=== PATIENT | male | born 1995 ===

== ENCOUNTER 2020-03-27 05:55 | Emergency (ER) | payer OTHER, SELFPAY ==
[2020-03-27] MEDS ORDERED: Ketorolac Tromethamine 30 MG/ML VIAL ONE (06:25)
== END 2020-03-27 06:55 | disposition home or self-care (01) ==
LOC: ERS 05:55
DX: R10.9 Unspecified abdominal pain (principal); I10 Essential (primary) hypertension; F90.9 Attention-deficit hyperactivity disorder, unspecified type; F42.9 Obsessive-compulsive disorder, unspecified; Z79.899 Other long term (current) drug therapy
CPT/HCPCS: 96372; 99281; J1885